=== PATIENT | male | born 1980 | race African-American/Black ===

== ENCOUNTER 2025-02-01 18:09 | Emergency (ER) | payer OTHER, SELFPAY ==
[2025-02-01 18:13] VITALS: BP 134/79
--- NOTE | 2025-02-01 19:23 | ED.GENMED ---
History of Present Illness
General
Chief Complaint: Musculo-Skeletal Complaint
Time Seen by Provider: 02/01/25 19:23
History of Present Illness
History of Present Illness:
TIME OF INITIAL ENCOUNTER: 7:30 p.m.
HPI: The patient worked out 3 days ago without any issues. The following day he had nontraumatic right chest/flank pain. The pain worsens when he laughs/moves certain positions. He has not taken anything for pain. He has some intermittent
shortness of breath.
EXAM:
GENERAL: Well appearing in no distress, athletic build
HEENT: Moist oral mucosa
CARDIOVASCULAR: No murmurs, normal heart rate, regular rhythm, mild right sided posterolateral chest wall tenderness
PULMONARY: No respiratory distress, breath sounds are clear and equal
ABDOMEN: Soft with no peritoneal signs, no tenderness, no CVA tenderness
NEUROLOGIC: Excellent strength all extremities, no coordination deficits
PSYCHIATRIC: Appropriate mental status, normal insight and judgement
EXTREMITIES: Nontender, no edema, moves all extremities equally
SKIN: No rash, no lesions
NUMBER AND COMPLEXITY OF PROBLEMS ADDRESSED AT THE ENCOUNTER
� Chronic conditions affecting care: No significant past medical history
� Acute Exacerbation and/or Progression of Chronic Illness: This is an acute problem
� Differential Diagnosis includes: Musculoskeletal chest wall pain, very low suspicion for PE and vital signs are not consistent with PE
AMOUNT AND/OR COMPLEXITY OF DATA TO BE REVIEWED AND ANALYZED
� I performed an independent evaluation of and my interpretation is:
EKG: Sinus 84, left axis deviation, nonspecific ST abnormality, no old to compare
CT:
X-rays: Chest x-ray shows no acute abnormality
Laboratory Studies:
Other:
� Review of other/old records: No old records available for review
� Clinical information was obtained by an independent historian: None needed
� Prescriptions/Medications Considered but not given:
� Further testing considered but not performed:
RISK OF COMPLICATIONS AND/OR MORBIDITY OR MORTALITY OF PATIENT MANAGEMENT
� Social determinants of health affecting care: Lives at home, has a baby at home with presumed viral syndrome
� Discussion with other providers:
� Escalation of care including admission/observation vs risk of discharge considered: The patient is PERC negative. Strong suspect musculoskeletal etiology of right chest pain. EKG unremarkable. Chest x-ray also obtained.
Gave a dose of Toradol�she has not tried anything at home for pain
ANY OTHER UPDATES:
8:50 PM: I reassessed patient. No significant improvement. The pain seems positional in nature. Suspect more of a musculoskeletal etiology.
Phy Exam
Physical Exam
Physical Exam:
See HPI
Scores
PERC Rule Criteria
Age <50 years: Yes
HR <100 bpm: Yes
Room air oxygen sat >94%: Yes
History of DVT or PE: No
Recent trauma or surgery: No
Hemoptysis: No
Exogenous estrogen: No
Clinical signs suggestive of DVT: No
: No
Considered low risk for PE: Yes
PERC Score: 0
PE can be excluded by PERC: Yes
Course
Orders/Labs/Results
Orders:
Orders
02/01/25 18:10
EKG [Electrocardiogram (*1)] Urgent
Reason for Study: Other
Other Reason for Exam: rib pain
EKG- Treatment ONCE
02/01/25 19:24
CR Chest - 2 Views Urgent
Comment:
Reason For Exam: nontraumatic R pain
02/01/25 19:30
Ketorolac [Toradol] 30 mg IM NOW STA
Vital Signs
Initial and Last Documented VS:
Initial Vital Signs
Temp Pulse Resp BP Pulse Ox
37.2 C 86 18 134/79 100
02/01/25 18:13 02/01/25 18:13 02/01/25 18:13 02/01/25 18:13 02/01/25 18:13
Last Documented Vital Signs
Temp Pulse Resp BP Pulse Ox
37.2 C 86 16 134/79 100
02/01/25 18:13 02/01/25 18:13 02/01/25 20:00 02/01/25 18:13 02/01/25 18:13
*Critical Care Note
Total Time (30-74mins, 75-104mins- exclusive of procedures): Not Applicable
ED Attending Note
-
Portions of this chart may have been created with voice recognition software.� Occasional wrong word or��sound alike� substitutions may have occurred due to the inherent limitations of voice recognition software.
Discharge Plan
Departure
Referrals:
Honey Aviles [Family Provider] -
Interventions
Interventions:
*Risk Screen - Suicide Last Done: 02/01/25 18:13
*Neglect/Abuse Screening Last Done: 02/01/25 18:13
*ED COVID-19 Vaccine History Last Done: 02/01/25 18:13
ED-Musculoskeletal Assessment Last Done: 02/01/25 19:28
Discharge Date and Time
Print Language: FRISIAN
[2025-02-01] MEDS: TORADOL 30 MG IM (19:41)
[2025-02-01 21:00] VITALS: BP 128/70
== END 2025-02-01 21:01 | disposition home or self-care (01) ==
LOC: EMR 18:09
PROVIDERS: EMERGENCY PHYSICIAN Emergency Medicine; FAMILY PHYSICIAN Family Medicine Hospice and Palliative Medicine
DX: R07.89 Other chest pain (principal)
CPT/HCPCS: 99284; 96372; 71046; 93005

== ENCOUNTER 2025-02-05 00:16 | Inpatient (IN) | payer OTHER, SELFPAY ==
[2025-02-04 16:21] VITALS: BP 127/72
[2025-02-04 16:47] LABS: Urine Albumin 1+ (Neg - Trace); Urine Bilirubin Negative (Negative); Urine Character Clear (Clear); Urine Color Yellow; Urine Glucose Negative (Negative); Urine Ketone Negative (Negative); Urine Leukocyte Negative (Negative); Urine Nitrite Negative (Negative); Urine Occult Blood Negative (Negative); Urine Specific Gravity 1.025 (<1.030); Urine Urobilinogen Negative (Neg - 1+)
[2025-02-04 16:50] LABS: % Basophils 0.3 % (0-2); % Eosinophils 2.9 % (0-6); % Immature Granulocytes 0.3 % (0-0.5); % Lymphocytes 28.8 % (20.5-51.1); % Monocytes 9.1 % (1.7-9.3); % Neutrophils 58.6 % (42.2-75.2); Absolute Eosinophils 0.2 10^3/uL (0-0.7); Absolute Lymphocytes 1.7 10^3/uL (1.2-3.4); Absolute Monocytes 0.5 10^3/uL (0.1-0.6); Absolute Neutrophils 3.5 10^3/uL (1.4-6.5); Hematocrit 42.6 % (39.0-52.0); Hemoglobin 14.2 g/dL (13.0-18.0); Mean Corp Hgb Conc. 33.3 g/dL (33.0-37.0); Mean Corpuscular Hgb 28.1 pg (27.0-31.0); Mean Corpuscular Volume 84.4 fL (80.0-94.0); Mean Platelet Volume 9.1 fL (7.4-10.4); Nucleated Red Blood Cells % 0 % (-); Platelet Count 348 10^3/uL (130-400); Red Blood Cell Count 5.05 10^6/uL (4.70-6.10); Red Cell Dist. Width 12.8 % (11.5-14.5); White Blood Cell Count 5.9 10^3/uL (4.8-10.8)
[2025-02-04 17:06] LABS: ALT (SGPT) 23 U/L (0-50); AST (SGOT) 29 U/L (17-59); Albumin 4.6 g/dl (3.5-5.0); Alkaline Phosphatase 58 U/L (38-126); Blood Urea Nitrogen 12 mg/dl (9-20); Calcium 9.6 mg/dl (8.4-10.2); Carbon Dioxide 31 mmol/L (22-30); Chloride 100 mmol/L (98-107); Glucose 91 mg/dl (70-99); Lipase 178 U/L (23-300); Potassium 4.1 mmol/L (3.5-5.1); Sodium 142 mmol/L (135-145); Total Bilirubin 0.5 mg/dl (0.2-1.3); Total Protein 8.2 g/dl (6.3-8.2); eGFR > 60.00
[2025-02-04 17:17] LABS: Urine Squamous Cell 0-2 /LPF (Few)
[2025-02-04 17:18] LABS: Urine Red Blood Cell 0-2 /HPF (0-2); Urine White Cell 0-2 /HPF (0-5)
--- NOTE | 2025-02-04 21:00 | ED.GENMED ---
History of Present Illness
General
Chief Complaint: Flank Pain
Source: patient and records
Time Seen by Provider: 02/04/25 20:16
History of Present Illness
History of Present Illness:
44-year-old male with no significant past medical history presents back to the emergency department for reevaluation for right sided mid to upper back discomfort that started a few days ago, presented to the ER on February 01, had x-ray imaging
performed which was unremarkable and advised to take NSAIDs as needed. Patient states that he did this for the last 2 days with no relief although admits to not taking anything for the pain today. Patient denies any new symptoms and denies any
known potential reason for injury. He is denying any chest pain, shortness of breath, palpitations, diaphoresis, exertional dyspnea, cough, hemoptysis, lower extremity edema. No recent travel or prolonged sedentary state or recent surgeries.
Past History
Past History
ED Past Medical History: None
ED Past Surgical History: None
Social History
Tobacco: Non-smoker
Alcohol: None
Drug: None
Personal:
Living: with family
Review of Systems
Review of Systems
All Other Systems: ROS reviewed and negative except as documented in HPI and ROS
Phy Exam
Physical Exam
Physical Exam:
GENERAL: Alert , in no apparent distress
EYE: conjunctiva clear
NECK: Supple, no significant adenopathy.
ENT: o/p clr, mmm.
CARDIAC: Regular rate and rhythm
LUNGS: Clear breath sounds bilaterally, no acute respiratory distress, no wheezes/rales/rhonchi
BACK: There is reproducible tenderness medial border of the scapula along the right. No rashes
NEUROLOGICAL: Alert and oriented
SKIN: Warm and dry, skin intact.
MUSCULOSKELETAL: well perfused.
PSYCH: Normal and appropriate interaction.
Scores
Heart Failure Risk
Heart Failure Risk Score: Not Applicable
Heart Score for Chest Pain Patients
STEMI patient?: Not applicable
Withdrawal Assessment of Alcohol
Withdrawal Assessment Completed?: Not applicable
Course
Orders/Labs/Results
Orders:
Orders
02/04/25 16:37
Complete Blood Count/With Diff Urgent
Comprehensive Metabolic Panel Urgent
Lipase Urgent
Urinalysis Reflex To Culture Urgent
Date Specimen was Collected: 02/04/25
Time Specimen was Collected: 16:24
Urine Microscopic Reflex Cult Urgent
02/04/25 20:31
CT Chest PE Study Urgent
Comment:
Reason For Exam: right sided pleurisy
Ketorolac [Toradol] 30 mg IV NOW STA
02/04/25 22:08
Heparin 8,500 units IV NOW STA
02/04/25 22:[address] Non Medication Order As Directed
Physician Order: PTT 6 hours after initial start of Heparin infusion
Above order entered?: Yes
02/04/25 22:15
Heparin 11452 Units/250 ml 25,000 units in 250 ml IV PER PROTOCOL
Weight to be used for heparin protocol in kilograms (kg):: 106.1
Protocol:: DVT/PE
PTT Goal Range to be used:: PTT 73 to 111 seconds
Order type:: Initial
INITIAL Infusion Dose (UNITS/KG/hr) & then follow protocol:: 18 units/kg/hr
Infusion Dose in UNITS/hr & then follow protocol (UNITS/hr):: 1,900
INFUSION RATE in mL/hr & then follow protocol (mL/hr):: 19
For DVT/PE algorithm, re-bolus for low PTT?: Yes
PTT less than or equal to 64 seconds:: Re-bolus 80 units/kg (max 10,000units). Increase by 400 units/hr
(+ 4mL/hr)
PTT 64.1 to 72.9 seconds:: Re-bolus 40 units/kg (max 5,000 units). Increase by 200 units/hr
(+ 2mL/hr)
PTT 73 to 111 seconds:: Target Range. No change in rate.
PTT 111.1 to 130.9 seconds:: Decrease rate by 200 units/hr (- 2 mL/hr)
PTT 131 to 199.9 seconds:: HOLD for 1 hr. Then decrease by 300 units/hr (- 3mL/hr)
PTT greater than or equal to 200 seconds:: HOLD for 2 hrs & Notify Provider. Then decrease by 400 units/hr
(- 4mL/hr)
Lab follow-up:: Each change, PTT q6h until 2 consecutive are therapeutic. Then
PTT daily.
02/04/25 22:38
Heparin 8,500 units IV PRN PRN
02/04/25 22:39
Type+Screen Urgent
NT-proBNP Urgent
PTT Urgent
Prothrombin Time Urgent
Troponin I Urgent
Heparin 4,200 units IV PRN PRN
02/04/25 22:50
ABO2 Urgent
BBK Wristband Number:
Associate notified that ABO2 has been ordered: EDDIE
Date: 02/04/25
Time: 22:48
Event Promotions Coordinator ID: [id number]
02/04/25 23:22
Venous Doppler Lwr Ext Bilat [US Periph Venous LOWER Ext Rakesh] Urgent
Comment:
Reason For Exam: rll pe right lung infarct
02/04/25 23:34
Case Management Consult ONCE
Case Management Consult: Discharge Planning
Comment: Need pricing for Eliquis 10 mg twice daily x 7 days then 5 mg twice daily for current PE or Xarelto
15 mg p.o. twice daily x 21 days then 20 milligrams daily
02/05/25 00:06
Admit/Transfer Patient As Directed
Co-Sign Provider:
Level of Care: Inpatient admission
Assign to:: Telemetry
Physician / Group: Renny
Diagnosis: PE / Pulmonary Infarct
Reason for Telemetry: Chest Pain syndromes
Date to Stop Telemetry: 02/07/25
Time to Stop Telemetry: 11:00
Reason for Hospitalization: PE / Pulmonary Infarct
Expected length of stay greater than two midnights?: Yes
ELOS- Estimated Length of Stay in days: 2
I certify the patient meets the requirements for IP care: Yes
Code Status As Directed
Resuscitation Status: Full Code
PRN Pain Medication Management As Directed
May give lesser potent ordered pain med per pt: Yes
preference::
Protocol:: Medication orders for pain may be administered in a
manner that supports deferring to patient preference
when the pt is:
- Requesting an ordered lesser potent pain medication.
Least to most potent pain medications are defined
as: acetaminophen < NSAID < tramadol < opioids
(morphine, oxycodone, hydromorphone).
- Requesting a lesser dose of the same medication IF
ORDERED.
- Requesting a less intrusive route of administration
if both routes are prescribed by the provider (PO <
IV).
02/05/25 04:47
PTT Routine
02/07/25 11:00
DC Protocol for Telemetry ONCE
Abnormal Lab Results
02/04/25
16:37
Carbon Dioxide 31 H mmol/L
(22-30)
Urine Albumin (Reflex) 1+ A
(Neg - Trace)
02/04/25 16:37
02/04/25 16:37
Vital Signs
Initial and Last Documented VS:
Initial Vital Signs
Temp Pulse Resp BP Pulse Ox
98.2 F 72 16 127/72 100
02/04/25 16:21 02/04/25 16:21 02/04/25 16:21 02/04/25 16:21 02/04/25 16:21
Last Documented Vital Signs
Temp Pulse Resp BP Pulse Ox
98.2 F 67 14 139/85 99
02/04/25 16:21 02/04/25 23:30 02/04/25 23:30 02/04/25 23:09 02/04/25 23:30
MDM/Problems Addressed
Differential Diagnosis Includes:
Pleurisy, muscle strain, much less concern for pulmonary embolism, pneumothorax, or infectious etiology given lack of other symptoms as well as risk factors, given the location of pain also considered renal/ureteral colic
MDM/Problems Addressed:
44-year-old male presenting back to the emergency department for reevaluation after being seen 3 days ago for right-sided back/flank pain. Patient had x-ray done at that time which was unremarkable. Labs and urine ordered today are all reassuring.
There is no microscopic hematuria and given the location of the pain being more in the upper back I have much less concern for urinary source. I overall doubt patient has emergent pathology however given that this is a recurring visit and still
has pleuritic discomfort will obtain CTA of the chest to further evaluate.
*Radiology
Radiology exam reviewed: radiology read reviewed
*Pulse Oximetry
Patient hypoxic: no
*Critical Care Note
Total Time (30-74mins, 75-104mins- exclusive of procedures): Not Applicable
Patient Management
Discussion with other providers: Hospitalist
Escalation/DeEscalation of care consider admission/obs:
Patient CT shows right-sided pulmonary embolism with small effusion and suspected right pulmonary infarct. Patient remains hemodynamically stable and in no acute distress. Additional labs including troponin and a BNP were ordered. Will initiate
patient on heparin drip. Hospitalist team aware and accepts for continued evaluation and treatment.
ED Attending Note
-
Portions of this chart may have been created with voice recognition software.� Occasional wrong word or��sound alike� substitutions may have occurred due to the inherent limitations of voice recognition software.
Discharge Plan
Departure
Patient Disposition: Admit
Date of Disposition: 02/04/25
Time of Disposition: 22:19
Presentation/result/management discussed w/ accepting MD/DO: Hospitalist
Discharge Problem:
Pulmonary embolism and infarction
Interventions
Interventions:
*Risk Screen - Suicide Last Done: 02/04/25 16:21
*General Assessment Last Done: 02/04/25 16:21
*Neglect/Abuse Screening Last Done: 02/04/25 16:21
*ED- Fall Risk Assessment Last Done: 02/04/25 21:16
*ED COVID-19 Vaccine History Last Done: 02/04/25 21:16
AV-Qyuuov-Ldbvxodeku Assessment Last Done: 02/04/25 22:54
ED-Male Genitourinary Assessment Last Done: 02/04/25 22:54
[2025-02-04 21:14] VITALS: BMI 31.8
[2025-02-04] MEDS: TORADOL 30 MG IV (21:28)
[2025-02-04] MEDS: HEPARIN 8500 UNITS IV (22:47)
[2025-02-04] MEDS: HEPARIN 25000 UNITS/250 ML IV (22:48)
--- NOTE | 2025-02-04 22:50 | HPS.HSE ---
Addendum entered and electronically signed by Edwin Lawson DO 02/05/25 00:12:
Patient seen and examined independently. Agree with findings and plan as set forth by CATY Centeno.
Patient is a 44y M with no significant PMH who presents to ED complaining of back discomfort x 3-4 days. No improvement with NSAIDs / supportive care alone. Seen in ED on 02/01 and plain x-rays were unremarkable. He returned today with
persistent symptoms. Patient flies to [place] fairly regularly and his most recent trip was about 2 weeks ago. (Down and back in the same day).
Ass:
RLL Pulmonary Embolism and Infarct
Plan:
Admit for further evaluation and treatment.
IV heparin infusion.
Begin DOAC prior to discharge for total of 6 months.
Follow for any new / worsening symptoms.
Supportive care / pain control.
Check Echo / LE dopplers for completeness.
Original Note:
Family Physician
-
Family Physician: Honey Aviles
Chief Complaint
-
Right sided lateral rib pain
History of Present Illness
45-year-old male complaining of right-sided mid to upper back discomfort that started approximately 4 days ago. He was seen in the ER on February 01 had x-rays performed which were unremarkable and advised to take NSAIDs as needed. He states he has
done that for the last 2 days with no relief although admits to not taking anything for the pain today. He reports to me that he took a flight 2 weeks ago to [place] to drop off his daughter 2-1/2 hours down to 2-1/2 hours back on the same day he
did not move while on the plane as he slept. He denies chest pain, shortness of breath, palpitations, diaphoresis, YUAN, cough, hemoptysis, lower extremity edema, . CT of his chest in the ER revealed a posterior right lower lobe PE within the
segmental and subsegmental pulmonary arteries along with a right lower lobe probable infarct and small right pleural effusion.
Medical History
Past Medical History
Past Medical History: Reports None
Past Surgical History: Reports None
Social History
Tobacco: Non-smoker
Alcohol: Occasional (Once a month)
Drug: None
Personal:
Living: With Family
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
Family History
Family History: Other (No family history of DVT or PE)
Allergies / Home Medications
Allergies reflects when Allergies were last updated in [facility].
Home Medications with original date entered in [facility]
Allergy/Medication List:
Allergies
Allergy/AdvReac Type Severity Reaction Status Date / Time
No Known Allergies Allergy Verified 02/04/25 16:23
Review of Systems
-
History Source: Patient and Family ( at bedside)
A 12 point ROS was completed and negative except as noted: Yes
Constitutional: Denies Fever, Fatigue or Chills
EENT: Denies Sore Throat or Runny Nose
Respiratory: Reports Trouble Breathing (Pain on inspiration right lateral rib); Denies Cough
Cardiac: Denies Chest Pain, Diaphoresis, Palpitations or Syncope
Abdomen/GI: Denies Abdominal Pain, Nausea, Vomiting, Diarrhea or Constipated
: Denies Dysuria, Frequency, Flank Pain, Incontinence or Difficulty Voiding
Musculoskeletal: Denies Joint Pain or Edema
Skin: Denies Itching or Rash
Neurological: Denies Dizzy, Headache or Weakness
Endocrine: Reports No Symptoms
Hematologic/Lymphatic: Reports No Symptoms
Psych: Reports Calm
Physical Exam
Vital Signs
Vital Signs
Temp Pulse Resp BP Pulse Ox
98.2 F 72 16 127/72 100
02/04/25 16:21 02/04/25 16:21 02/04/25 16:21 02/04/25 16:21 02/04/25 16:21
Physical Exam
General: Comfortable and Conversant; No Fever or Chills
HEENT: NormoCephalic, Anicteric, PERRLA, [place] Conjunctivae and No Ptosis
Respiratory: Clear; No Wheezes, Rales or Rhonchi
Cardiac: S1/S2 and Regular Rhythm; No Murmur, Rub or Gallop
Breast: Deferred by me
GI: Soft, Non Tender, Non Distended, Normal Bowel Sounds and No Hepatosplenomegaly
Genito-urinary: Deferred by me
Musculoskeletal: No Clubbing, No Cyanosis, No Edema and Other (No calf pain)
Skin: Warm and Dry; No Rash
Neuro: AO x 3 and No Sensory Deficits; No Slurred Speech, Facial Droop, Tremors or Sedated
Psych: Calm
Laboratory Results
-
02/04/25 16:37
02/04/25 16:37
Laboratory Results
Total Bilirubin 0.5 mg/dl (0.2-1.3) 02/04/25 16:37
AST 29 U/L (17-59) 02/04/25 16:37
ALT 23 U/L (0-50) 02/04/25 16:37
Alkaline Phosphatase 58 U/L (38-126) 02/04/25 16:37
Lipase 178 U/L (23-300) 02/04/25 16:37
Data Reviewed
-
Lab Data: Labs Reviewed by me
Impression/Plan
-
Impression/plan:
OBS telemetry
#Right lower lobe PE with Right lower lobe infarct
100% RA
- IV heparin gtt
-Check bilateral venous duplex legs
- Consult case management-pricing for Eliquis 10 mg twice daily x 7 days then 5 mg twice daily OR Xarelto 15 mg twice daily x 21 days then 20 mg daily
Patient was made aware no contact sports, no basketball, no weight lifting or benching 250 pounds, no bike riding while on anticoagulation his was present when these instructions were given
CT PE study:
1. Pulmonary emboli within posterior right lower lobe segmental and subsegmental pulmonary arteries. No overt CT evidence for right heart strain.
2. Small right pleural effusion and right lower lobe probable infarct.
Full code
[2025-02-04 23:07] LABS: INR 1.08; PT 14.3 Sec (11.4-14.6)
[2025-02-04 23:08] LABS: APTT 30.6 Sec (23.4-35.0)
[2025-02-04 23:09] VITALS: BP 139/85
[2025-02-04 23:13] LABS: NT-proBNP < 20.0 pg/ml; Troponin I < 0.012 ng/ml
[2025-02-05 00:17] VITALS: BP 137/86
[2025-02-05 01:11] VITALS: BP 146/81; BMI 34.5
[2025-02-05] MEDS: NSS 1000 IV (02:59)
[2025-02-05 03:21] VITALS: BP 117/70
[2025-02-05 06:31] LABS: APTT 189.5 Sec (23.4-35.0)
[2025-02-05 06:57] LABS: Hematocrit 37.9 % (39.0-52.0); Hemoglobin 12.8 g/dL (13.0-18.0); Mean Corp Hgb Conc. 33.8 g/dL (33.0-37.0); Mean Corpuscular Hgb 28.1 pg (27.0-31.0); Mean Corpuscular Volume 83.3 fL (80.0-94.0); Mean Platelet Volume 9.2 fL (7.4-10.4); Platelet Count 298 10^3/uL (130-400); Red Blood Cell Count 4.55 10^6/uL (4.70-6.10); Red Cell Dist. Width 12.7 % (11.5-14.5)
[2025-02-05 07:17] LABS: APTT > 200 Sec (23.4-35.0)
[2025-02-05 07:40] VITALS: BP 131/81
--- NOTE | 2025-02-05 08:47 | W.PN.HOSP.TC ---
Today's Communication/Plan
-
d/c
Assessment / Plan
Assessment / Plan
Gen: NAD, AAOx3.
Eyes: EOMI, PERRLA, no scleral icterus.
Neck: supple.
CV: RRR, +S1/S2, no m/r/g.
Resp: CTAB, no rales, wheezes, or rhonchi.
Abd: +BS, soft, NT, ND
Skin: No rashes.
Neuro: CN 2-12 intact, non-focal.
Psych: Normal mood and affect.
CTA chest:
1. Pulmonary emboli within posterior right lower lobe segmental and subsegmental pulmonary arteries. No overt CT evidence for right heart strain.
2. Small right pleural effusion and right lower lobe probable infarct.
B/L LE U/S: No sonographic evidence for lower extremity venous thrombosis.
Right lower lobe PE pulmonary infarct:
-currently on heparin gtt
-saturating well on RA, hemodynamically stable, troponin negative
-No indication to check echocardiogram
-transition to [facility] and d/c home
Patient was made aware no contact sports, no basketball, no weight lifting or benching 250 pounds, no bike riding while on anticoagulation his was present when these instructions were given
FULL
Anticipated Discharge: Today
Subjective/Interval History
-
Date of Service: February 05, 2025
Denies SOB. Mild pleuritic CP.
Objective Data
-
Labs:
Laboratory Results
02/04/25 02/05/25 02/05/25
22:39 05:14 06:41
WBC 7.0
Hgb 12.8 L
Hct 37.9 L
Plt Count 298
PT 14.3
INR 1.08
APTT 30.6 189.5 H* > 200 H*
Sodium Pending
Potassium Pending
Chloride Pending
Carbon Dioxide Pending
BUN Pending
Creatinine Pending
Glucose Pending
Calcium Pending
02/05/25
14:00
WBC
Hgb
Hct
Plt Count
PT
INR
APTT Pending
Sodium
Potassium
Chloride
Carbon Dioxide
BUN
Creatinine
Glucose
Calcium
Vital Signs:
Vital Signs
Temp Pulse Resp BP Pulse Ox
97.3 F 62 16 131/81 98
02/05/25 07:40 02/05/25 07:40 02/05/25 07:40 02/05/25 07:40 02/05/25 07:40
[2025-02-05] MEDS: ELIQUIS 10 MG PO (09:23)
[2025-02-05 09:31] LABS: Blood Urea Nitrogen 12 mg/dl (9-20); Carbon Dioxide 28 mmol/L (22-30); Chloride 104 mmol/L (98-107); Estimated Creatinine Clearance > 125 ml/min; Glucose 102 mg/dl (70-99); Potassium 4.1 mmol/L (3.5-5.1); Sodium 139 mmol/L (135-145); eGFR > 60.00
--- NOTE | 2025-02-05 09:31 | CM ---
CM called pt's prescription plan with [facility] [phone] and quoted:
Eliquis starter pack (10mg BID x 7 days) = $71.15
Eliquis 5mg BID 30 day supply= $57.70
Xarelto starter pack (15mg BID x 21 days) = $87.91
Xarelto 20mg daily = $51.72
--- NOTE | 2025-02-05 09:53 | CM ---
Met with patient. Reviewed costs. Agreeable to [facility]. Discount coupon provided.
No other skilled dc needs identified. Family to transport.
--- NOTE | 2025-02-05 14:26 | W.DCSUMMARY ---
Discharge Summary
Discharge Data
Date of Admission: 02/04/25
Date of Discharge: 02/05/25
-
Pending Results: No
Hospital Course
Primary diagnoses:
Right lower lobe pulmonary embolism with pulmonary infarct
Secondary diagnoses:
None
Consultants:
None
Imaging:
CTA chest:
1. Pulmonary emboli within posterior right lower lobe segmental and subsegmental pulmonary arteries. No overt CT evidence for right heart strain.
2. Small right pleural effusion and right lower lobe probable infarct.
B/L LE U/S: No sonographic evidence for lower extremity venous thrombosis.
Hospital course: 44-year-old male who presented with a chief complaint of back pain x 3 to 4 days as outlined in the H&P done on admission. Patient has CT angiogram of the chest showing right lower lobe pulmonary embolism with pulmonary infarct.
He was placed on a heparin drip. He was saturating well on room air, hemodynamically stable, and had negative troponin. He was transitioned to Eliquis and discharged home in medically stable condition
Discharge Plan
-
Patient Disposition: Home (Routine Discharge)
Discharge Diagnosis/Procedures: Right lower lobe pulmonary embolism with pulmonary infarct
Condition: Good
Diet: No restrictions
Activity: No strenuous activity
Driving Restrictions: As prior to admission
Bathing Restrictions: None
Referrals:
Honey Aviles [Family Provider] - in less than 1 week
Prescriptions:
New
Eliquis 5 mg tablet
5 mg PO BID Qty: 68 0RF
Rx Instructions:
10mg BID x 13 doses then 5mg BID thereafter
Discharge Orders:
Discharge Patient (As Directed); Ordered 02/05/25
Ordered By: Maikol Snyder
Discharge Date and Time
Discharge Date/Time: 02/05/25 10:11
Print Language: MALIAN
== END 2025-02-05 10:11 | disposition home or self-care (01) | DRG 176 ==
LOC: 3 WEST ACU 00:16
PROVIDERS: Emergency Medicine; Physician Assistant Medical; ADMITTING PHYSICIAN Hospitalist; ATTENDING PHYSICIAN Internal Medicine; EMERGENCY PHYSICIAN Emergency Medicine; FAMILY PHYSICIAN Family Medicine Hospice and Palliative Medicine
DX: I26.94 Multiple subsegmental thrombotic pulmonary emboli without acute cor pulmonale (principal); Z79.01 Long term (current) use of anticoagulants
CPT/HCPCS: 71275; 80048; 80053; 81003; 81015; 83690; 83880; 84484; 85025; 85027; 85610; 85730; 86850; 86900; 86901; 93005; 93970; 96365; 96366; 96375; 99284; Q9967